=== PATIENT | female | born 1995 | race Two or more races ===

== ENCOUNTER 2020-12-04 01:51 | Emergency (ER) | payer OTHER ==
[2020-12-04 02:16] VITALS: TEMP 98.1; BMI 19.1
[2020-12-04] MEDS ORDERED: ACETAMINOPHEN 325 MG TABLET (FP) PO ONE (02:34)
[2020-12-04] MEDS ORDERED: ACETAMINOPHEN 325 MG TABLET (FP) ONE (02:37)
[2020-12-04 04:08] VITALS: BP 121/80; PULSE 96
== END 2020-12-04 04:10 | disposition home or self-care (01) ==
LOC: JER 01:51
DX: V87.7XXA Person injured in collision between other specified motor vehicles (traffic), initial encounter (principal)
CPT/HCPCS: 71046-TC-FY; 93005; 93010; 99284-25